=== PATIENT | male | born 1975 | race Caucasian/White ===

== ENCOUNTER 2021-09-13 16:17 | Emergency (ER) | payer OTHER ==
[~2021-09-13] VITALS: Ht 175.3 cm; Wt 99.8 kg
[2021-09-13 16:25] VITALS: BP 172/127
[2021-09-13] MEDS ORDERED: CHLO25TA2 PO (16:45)
--- NOTE | 2021-09-13 16:54 | NUR ---
US AT BEDSIDE
--- NOTE | 2021-09-13 18:23 | NUR ---
DC home, instructions given to the patient, verbalized understanding of care
--- NOTE | 2021-09-13 18:23 | NUR ---
Ultrasound results showed negative for DVT
== END 2021-09-13 18:24 | disposition home or self-care (01) ==
LOC: ER 16:27
DX: R60.0 Localized edema (principal); Z76.0 Encounter for issue of repeat prescription; I10 Essential (primary) hypertension; F17.200 Nicotine dependence, unspecified, uncomplicated; Z79.899 Other long term (current) drug therapy
CPT/HCPCS: 93970-TC